=== PATIENT | female | born 1960 | race Caucasian/White ===

== ENCOUNTER → 2016-07-05 | Outpatient (CLI) | payer OTHER ==
[~2016-07-05] VITALS: Ht 167.6 cm; Wt 81.6 kg
[~2016-07-05] MED LIST: ALLEGRA ALLERG180 MG PO; ALLEGRA-D 24 H1 EACH PO; CALCIUM500 MG PO; COLACE100 MG PO; DIOVAN160 MG PO; EQ SINUS CONGE1 EAC1 PO; GLUCOTEN CAPLE1 EACH PO; GUIATUSSIN DAC473 ML PO; HAIR SKIN NAILS PO; HYDROCHLOROTHIA25 M1; IRON325 PO; LIDODERM 5%1 PATC1 TRANSDERM; LIPITOR10 MG PO; LORTAB 10 MG-3473 ML PO; LOVAZA1000 MG PO; MIRALAX17 GM PO; MOBIC7.5 MG PO; MUCINEX TA600 MG/TA2 PO; NORCO 5-325 TA1 EACH PO; PROZAC20 M1 PO; UNICOMPLEX M TA1 TA1 PO; VENTOLIN HFA 1818 GM INH; VITAMIN B12-FO1 EAC1 PO; VOLTAREN 50MG T50 MG PO; ZANTAC 150MG T150 MG PO; ZOFRAN ODT4 MG PO
--- NOTE | ~2016-07-05 | HPC ---
[facility] [place] [address] PAIN MANAGEMENT CONSULTATION Name: BEVERLY MCLAIN [facility] #: [facility] [id number] Admission: 07/05/16 Attend Phys: Gage Douglas DO Discharge: Date of : 58 Report #: [id number] THIS REPORT FOR: //name// CC: Jessica Douglas DO HISTORY OF PRESENT ILLNESS: The patient is a 55-year-old female, somewhat self-referred to the pain clinic for assistance with management of ongoing back pain. She had back surgery in 1990 for low back and right leg pain. Had an L5-S1 fusion with overall improvement of function, but she has had back pain for 26 year since. Pain is primarily low back, top of the buttock. It is exacerbated with standing or walking. She has had multiple injections over time. She did present to the pain clinic with medical records from multiple physicians. She saw orthopedic surgeon, Dr. Pal Treviño in October of 2015. Diagnosis was left hip pain with left lower extremity radiculopathy, anterior labral tear, and gluteus medius partial thickness tear. He did an injection with only modest efficacy. He then referred her for consideration for epidural injections. She was seen at the pain clinic in [facility] by Dr. J Luis Chavira. His notes refer to a fall in March of 2015, which further exacerbated back pain. It appears he did a number of caudal epidural injections under fluoroscopy. These afforded, per the patient, good yet transient improvement of pain. It appears her last steroid injection was in January of last year. She does reference having had multiple other procedures at other pain clinics over the many years. Unfortunately, the only records she provided were for the past 6 months. Currently, she notes she has continuous, steady, constant, aching, stabbing pain, rates it anywhere from 7-9 on a 0-10 visual analog scale. She states heat, rest, pillows and/or "narcotics" make her pain better. She denies any myelopathic symptoms. No specific loss of proprioception or saddle anesthesia and/or bowel or bladder continence changes. She does have subjective axial back pain and subjective feeling of weakness in the legs. REVIEW OF SYSTEMS: Complete review of systems was attached to the chart, was gone over with the patient. She is , seen in the company of her , who is supportive. She does not drink alcohol to excess. States she does not use tobacco products. History of dyslipidemia for which she takes Lipitor, chronic anxiety and depression for which she takes Prozac, asthma for which she uses a Ventolin metered dose inhaler. Diovan for hypertension. She apparently gets some pain medication from Dr. Rodrigo Pinedo, hydrocodone elixir, Lidoderm patches, and meloxicam 7.5 mg one tablet daily. PAST SURGICAL HISTORY: Includes the aforementioned lumbar fusion in 1990. [address] [address] PAIN MANAGEMENT CONSULTATION Name: BEVERLY MCLAIN Room #: REG JOSELINE Coulter#: [id number] Admission: 07/05/16 Attend Phys: Gage Douglas DO Discharge: Date of : 58 Report #: [id number] gastric sleeve in 2013 for obesity, she weighed 265 pounds at that time. She has lost about 85 pounds. Had a right knee arthroscopy in 2007, hernia repair in 2015, and ENT surgery around the year 1999. The patient states she had to quit working in August due to back pain. She is not on worker compensation or disability, nor she involved in any litigation regarding her current pain. Pain impact score is rated quite high, scoring 60/70 possible points. PHYSICAL EXAMINATION: Reveals a 5 feet 6 inches, 180-pound female, BMI is 29.1 kilograms per meter squared. Blood pressure is 134/70, pulse is 58, respirations are 16. NEUROLOGIC: Cranial nerves 2-12 are grossly intact. HEENT: Pupils are equal, round, and reactive to light and accommodation. Extraocular muscles are intact. NECK: Thyroid is unremarkable. HEART: Regular and rhythmical with a grade 1/6 systolic ejection murmur. LUNGS: Clear to auscultation. EXTREMITIES: Upper extremity strength shows a little bit of weakness in the left side with abduction, perhaps about 3/5, all other muscle groups in the upper extremities 4/5. Rises from the chair using armrests, has a mildly antalgic yet tandem gait. Subjectively unable to walk on her toes and heels, though lower extremity strength is 4/5 to objective testing to dorsiflexion, plantar flexion, lower extremity extension, flexion, and hip flexion. She does have "give away" to resistance: when asked to contract specific muscles for resistance testing, I felt an initial strong contraction followed by what felt like intermittent effort with patient somewhat fuad the target muscle and then relaxing. This "intermitent" effort somewhat belies the strength she exhibits with gait strength. Straight leg raise is nominally positive on the right. Patellar and Achilles reflexes are preserved 2/4. Tender over the SI joints. Positive Grace test bilaterally. Inspection of the back reveals diffuse tenderness in the midline from about T5 down. She has significant pain behaviors recoiling from light touch palpation in the midline, though I can detect no specific muscle spasm or trigger points. DIAGNOSTIC STUDIES: Includes MRI of the lumbar spine from 09/18/2015 noting prior L5-S1 diskectomy, partial fusion, some minor bulging with no major disk herniation or central stenosis is noted. There are no annular tears noted. There is more advanced facet degenerative changes at the L4-L5 level. This is likely the source of mechanical back pain per the radiologist. This does correlate with her physical findings as well. ASSESSMENT: 1. Status post lumbar decompressive laminectomy and fusion at L5-S1 2. Lumbar spondylosis at L4-L5, component of sacroiliac joint dysfunction. 3. The patient exhibits hyperpathia and allodynia in her mid back with pain appearing out of proportion to input. This may be compatible with Myofasial Pain syndrome. [facility] [address] [place] [address] PAIN MANAGEMENT CONSULTATION Name: BEVERLY MCLAIN Noreen Room #: REG [facility].#: [id number] Admission: 07/05/16 Attend Phys: Gage Douglas DO Discharge: Date of : 58 Report #: [id number] RECOMMENDATIONS: 1. May benefit from addition of a dual action serotonin reuptake and norepinephrine reuptake imaging agent. She is on Prozac at 10 mg b.i.d., may consider dropping this to once a day and starting Cymbalta. I would start with 30 mg for 1 month, and if doing well, consider going to 60 mg and discontinuing Prozac altogether. I will defer, however, to her treating physician, Dr. Jessica Pinedo. 2. I talked with the patient today about interventional options. I would recommend moving forward with SI joint injections under fluoroscopy initially. If this affords only incremental relief, consider L4-L5 facet joint injections if low back pain remains problematic. (with her fusion at L5/S1 she is at risk for increased movement at the joints both above and below; L4/5 and SI). 3. Physical therapy, home stretches, and core strengthening have been trialed for 8 weeks, recommend continuing these efforts. 4. The patient is on a nonsteroidal anti-inflammatory medication (Meloxicam) Recommend continuing this agent. 5. I will seek authorization for SI joint injections at next visit. Thank you for allowing me to participate in this patient's care. <ELECTRONICALLY SIGNED> By: Gage Douglas DO 07/08/16 0850 1155 21 aGge Douglas DO /nt
[2016-07-05 09:33] VITALS: BP 134/70
== END ==
LOC: PAIN 07:22
DX: M47.816 Spondylosis without myelopathy or radiculopathy, lumbar region (principal); G89.4 Chronic pain syndrome; E66.9 Obesity, unspecified; F41.9 Anxiety disorder, unspecified

== ENCOUNTER → 2016-07-08 | Outpatient (CLI) | payer OTHER ==
[~2016-07-08] VITALS: Ht 167.6 cm; Wt 84.8 kg
--- NOTE | ~2016-07-08 | HPC ---
[facility] [place] [address] PAIN MANAGEMENT CONSULTATION Name: BEVERLY REYES Noreen Room #: REG JOSELINE Coulter#: [id number] Admission: 07/08/16 Attend Phys: Gage Douglas DO Discharge: Date of : 58 Report #: [id number] THIS REPORT FOR: //name// CC: Jessica Douglas This patient is a 55-year-old female seen in consultation on 07/05/2016. She is status post decompressive laminectomy and fusion of L5/S1; she presented with bilateral SI joint dysfunction, and a component of bilateral lumbar spondylosis (L4/5) . The patient is being appropriately managed by Dr. Rodrigo Pinedo. She has been taking hydrocodone elixir 7.5-15 mL q.i.d. (corresponding to 5-10 mg hydrocodone), and meloxicam 15mg daily. The patient states she has been unable to take the somewhat large hydrocodone/acetamenophen tablets due to bariatric surgery. She presents to pain clinic today for prior authorized SI joint injections under fluoroscopy. She tells me today that she "shook her hydrocodone, and the cap was loosened, and she spilled it". While this sounds a little bit disingenuous, I will give the patient the benefit of the doubt, and I will write for a short prescription for hydrocodone-acetaminophen elixir 10/300 per 15 mL, Dispense 240 mL. Directions 7.5-15 mL q. 4-6 hours as needed for pain. I told the patient, I would send this information to Dr. Rodrigo Pinedo, I am not taking overriding for her chronic opiates, simply providing "gap" prescription. ASSESSMENT: 1. S/P L5/S1 fusion 2. Axial back pain requiring complex medication managmemnt 3. Lumbar sponodylosis (L4/5) 4. Lumbo-sacral spondylosis, SI joint mediated pain PROCEDURE: Bilateral SI joint injection under fluoroscopy. DESCRIPTION OF PROCEDURE: After written and informed consent was obtained including risk of infection, nerve trauma, increased pain and weakness, the patient wishes to proceed. The patient was taken to the fluoroscopy suite, placed in the prone position. The sacroiliac joint was visualized using the C-arm, turned in an oblique fashion to align the joint. The skin overlying the area was cleansed with ChloraPrep. Skin wheal with Xylocaine was raised. A 22 gauge spinal needle was inserted into the inferior aspect of the joint. A low volume extension tubing was then attached to the needle after the stylet was removed. Negative aspiration was accomplished. A 1 mL of Omnipaque was injected which showed spread within the SI joint. 40 mg triamcinolone plus 2 mL of 0.5% preservative-free bupivacaine was injected into the joint. Needle was [address] [address] PAIN MANAGEMENT CONSULTATION Name: RAYNEBEVERLY L Room #: REG JOSELINE Coulter#: [id number] Admission: 07/08/16 Attend Phys: Gage Douglas DO Discharge: Date of : 58 Report #: [id number]. Attention was then turned to the contralateral joint which was treated in an identical fashion. After both needles were removed the prep was washed off. Two Band-Aids were applied over the puncture sites. The patient was allowed to ambulate to the recovery room, monitored for an appropriate period of time, discharged in good and stable condition. Flouroscopy time was under 15 seconds. Will seek authorization for Lumbar facet joint injections, bilateral @ L4/5 to address the superior aspect Ms. Reyes's axial low back pain. By: 0924 1032 Gage Douglas DO /nt
[2016-07-08 09:05] VITALS: BP 144/84
== END ==
LOC: PAIN 06:53
DX: M53.3 Sacrococcygeal disorders, not elsewhere classified (principal); M47.26 Other spondylosis with radiculopathy, lumbar region; M96.1 Postlaminectomy syndrome, not elsewhere classified; I10 Essential (primary) hypertension; F32.9 Major depressive disorder, single episode, unspecified

== ENCOUNTER → 2016-08-05 | Outpatient (CLI) | payer OTHER ==
[~2016-08-05] VITALS: Ht 167.6 cm; Wt 83.5 kg
--- NOTE | ~2016-08-05 | HPC ---
[facility] [place] [address] PAIN MANAGEMENT CONSULTATION Name: RAYNEBEVERLY L Room #: REG JOSELINE Coulter#: [id number] Admission: 08/05/16 Attend Phys: Gage Douglas DO Discharge: Date of : 58 Report #: [id number] THIS REPORT FOR: //name// CC: Jessica Douglas HISTORY OF PRESENT ILLNESS: The patient is a pleasant 55-year-old female, prior seen in the pain clinic on 07/08/2016, diagnosed with axial back pain, lumbar spondylosis, lumbosacral spondylosis, SI-mediated pain status post L5-S1 fusion. The patient returns to pain clinic today, we had proceeded with an SI joint injection at last visit with nominal improvement of symptoms. Pain is actually little bit higher. PHYSICAL EXAMINATION: Does show tenderness over the L4 and L3 facet joints. Pain is exacerbated with standing and rotating. ASSESSMENT: 1. Symptomatic lumbosacral spondylosis, lumbar spondylosis. 2. Sacroiliac joint dysfunction, status post decompressive laminectomy and fusion. RECOMMENDATION: We will proceed with bilateral L3-L4 and L4-L5 facet joint injections under fluoroscopy today. Follow up in 3-4 weeks for reevaluation. PROCEDURE: Bilateral L3-L4 and L4-L5 facet joint injections under fluoroscopy. INDICATION: Symptomatic lumbosacral spondylosis. PROCEDURE: After written informed consent was obtained, the patient was taken to the fluoroscopy suite and placed in prone position. After sterile prep and drape, skin wheal was raised. A 25-gauge stylet needles were placed to contact the inferior aspect of the left L4-L5 and left L3-L4 facet joints. AP and lateral projections showed good needle placement. Negative aspiration was accomplished. 20 mg triamcinolone plus 1 mL of 0.5% preservative-free bupivacaine was injected at each site. [place] were removed and C-arm was turned obliquely to the right and the procedure was repeated on this side. After all four needles were removed, the area was cleansed, Band-Aids applied. The patient was allowed to ambulate to recovery room, monitored for an appropriate period of time, discharged in good and stable condition. Follow up in 3 weeks for reevaluation. Fluoroscopy time was under 20 seconds. By: 1211 [id number] Gage Douglas DO /nt
[2016-08-05 09:59] VITALS: BP 119/68
== END | disposition home or self-care (01) ==
LOC: PAIN 06:08
DX: M47.817 Spondylosis without myelopathy or radiculopathy, lumbosacral region (principal); M53.3 Sacrococcygeal disorders, not elsewhere classified; M47.816 Spondylosis without myelopathy or radiculopathy, lumbar region; Z98.890 Other specified postprocedural states

== ENCOUNTER → 2016-11-28 | Outpatient (CLI) | payer OTHER ==
[~2016-11-28] VITALS: Ht 167.6 cm; Wt 87.6 kg
[~2016-11-28] MED LIST changes: +HYDROCODONE-ACE15 ML PO
--- NOTE | ~2016-11-28 | HPC ---
[facility] [place] [address] PAIN MANAGEMENT CONSULTATION Name: LORI MCLAINARASH Sorto Room #: REG [facility] [id number] Admission: 11/28/16 Attend Phys: Gage Douglas DO Discharge: Date of : 58 Report #: [id number] THIS REPORT FOR: //name// CC: Jessica Douglas DATE OF SERVICE: 11/28/2016 DATE OF SERVICE: 11/28/2016 HISTORY OF PRESENT ILLNESS: The patient is a 56-year-old female, prior seen in the pain clinic 08/05/2016. The patient was given bilateral L3-L4 and L4-L5 facet joint injections under fluoroscopy with excellent improvement of symptoms. She returns to pain clinic today noting that the aforementioned injection in August afforded 60% relief for 2 months. She was able to do activities with less pain, notes pain has gradually begun to recur without any antecedent trauma and overuse. Pain is in the beltline to buttock, right leg does have some paresthesia and weakness. She has trouble going up and down stairs, has to lead with her left leg. Rates her pain at 8 on VAS notes there is numbing, stabbing sensation, pain exacerbated with walking and bending. PHYSICAL EXAMINATION: Shows a 56-year-old female, BMI and B/P are on the EMR , pulse 60, respirations 16. Rises from chair using armrest, modestly antalgic gait. Tender over the L3-L4 area. Positive straight leg raise on the right, pain, significant exacerbated with side bending and rotation. ASSESSMENT: 1. Symptomatic sacroiliac joint dysfunction by clinical exam and history. 2. Symptomatic lumbosacral spondylosis by clinical exam and history. 3. The patient with prior L5-S1 fusion, axial back pain and a component of right lumbar radicular pain. RECOMMENDATIONS: 1. Bilateral L3-L4 and L4-L5 facet joint injection under fluoroscopy. 2. Follow up in 3 weeks for reevaluation. Consideration for EMG right lower extremity versus epidural injection if indicated for clinical radicular symptoms. We did review MRI from 09/18/2015, which notes prior L5-S1 diskectomy and fusion, more advanced facet changes at L4-L5. PROCEDURE: Bilateral L3-L4 and L4-L5 facet joint injection under fluoroscopy. FLUOROSCOPY TIME: Under 20 seconds. PROCEDURE NOTE: After written informed consent was obtained, [place] [address] PAIN MANAGEMENT CONSULTATION Name: BEVERLY MCLAIN Room #: REG JOSELINE Coulter#: [id number] Admission: 11/28/16 Attend Phys: Gage Douglas DO Discharge: Date of : 58 Report #: [id number] taken to the fluoroscopy suite and placed in prone position. After sterile prep and drape, skin wheal was raised. A 22-gauge stylet needle was placed to contact the inferior aspect of the left L3-L4 and left L4-L5 facet joint. AP and lateral projections showed good needle placement. A 20 mg triamcinolone plus 1 mL of 0.5% preservative-free bupivacaine was injected into each joint. Cranks removed. C-arm was turned obliquely the right. Procedure was repeated this side. After all four needles removed. The area was cleansed, Band-Aids applied. The patient was allowed to ambulate to recovery room, monitored for an appropriate period of time, discharged in good and stable condition, noting dramatic improvement of baseline pain. Subjective pain score had been 8/10 on admission, was 2/10 on discharge. Follow up in 2-3 weeks for reevaluation. Thank you for allowing me to participate in this patient's care. <ELECTRONICALLY SIGNED> By: Gage Douglas DO 12/02/16 0840 1549 1502 Gage Douglas DO /nt
[2016-11-28 09:19] VITALS: BP 121/58
== END ==
LOC: PAIN 08-26 08:36
DX: M54.5 Low back pain (principal); M47.897 Other spondylosis, lumbosacral region; M53.3 Sacrococcygeal disorders, not elsewhere classified; I10 Essential (primary) hypertension; F32.9 Major depressive disorder, single episode, unspecified; Z88.1 Allergy status to other antibiotic agents; Z88.8 Allergy status to other drugs, medicaments and biological substances; Z79.891 Long term (current) use of opiate analgesic

== ENCOUNTER → 2016-12-26 | Outpatient (CLI) | payer OTHER ==
[~2016-12-26] VITALS: Ht 167.6 cm; Wt 86.5 kg
--- NOTE | ~2016-12-26 | HPC ---
[facility] [place] [address] PAIN MANAGEMENT CONSULTATION Name: RAYNELORIBEVERLY L Room #: REG [facility] Yfn#: [id number] Admission: 12/26/16 Attend Phys: Gage Douglas DO Discharge: Date of : 58 Report #: [id number] THIS REPORT FOR: //name// CC: Jessica Douglas DATE OF SERVICE: 12/26/2016 The patient is a 56-year-old female being treated for lumbosacral spondylosis, lumbar spondylosis, SI joint dysfunction, status post lumbar decompressive laminectomy. Last visit, we had proceeded with L3-L4 and L4-L5 bilateral facet joint injections. The patient noted she had about 50% relief of low back pain which is ongoing, able to do more activity with less pain. She did get diagnostic studies including MRI of the lumbar spine 09/18/2015, which were reviewed today. Again, previous L5-S1 diskectomy with lumbar facet degenerative changes throughout the lumbar spine. PHYSICAL EXAMINATION: Shows tenderness in the low back, exacerbated with side bending and rotation. The patient is having some ongoing right radicular pain and neuropathy. Paresthesia. Dr. Wallace had written for EMG, which is yet to be accomplished. Our nurses did contact Dr. Downey's office and have encouraged an appointment 01/02/2017 at 1345 hours. ASSESSMENT: Symptomatic lumbar spondylosis, lumbosacral spondylosis, sacroiliac joint dysfunction, status post lumbar decompressive laminectomy at L5-S1 with ongoing axial back pain. RECOMMENDATIONS: I had a long discussion with the patient today about therapeutic options. She has had good relief with facet joint injections last 2 visits. Today, we talked about moving forward with medial branch dorsal rami diagnostic block. We will move forward with radiofrequency neurolysis at next visit given good subjective relief that the patient had following the procedure. The patient notes pain was a 5-6 on VAS today, was 2 on VAS on discharge. ASSESSMENT: Symptomatic lumbosacral spondylosis, lumbar spondylosis. PROCEDURE: Medial branch dorsal rami diagnostic blocks in lumbar spine x 6 (L2, L3 and L4 bilateral). PROCEDURE NOTE: After written informed consent was obtained, the patient was [address] [address] PAIN MANAGEMENT CONSULTATION Name: RAYNEBEVERLY L Room #: [facility]#: [id number] Admission: 12/26/16 Attend Phys: Gage Douglas DO Discharge: Date of : 58 Report #: [id number] taken to fluoroscopy suite, placed in prone position. After sterile prep and drape, skin wheal was raised. A 22-gauge stylet needle was placed to contact superior articular process of L5, L4 and L3. AP and lateral projection showed good needle placement adjacent to the L2, L3 and L4 medial branch dorsal rami nerves. 1 mL of 50:50 mix of 0.5% preservative-free bupivacaine plus 1.5% preservative-free Xylocaine with 1:200,000 epinephrine was injected. All three needles removed. C-arm was turned obliquely to the right and procedure was repeated. Flouroscopy time was under 20 seconds. After all 6 needles removed, the patient was allowed to ambulate to the recovery room, monitored for an appropriate period of time, noting a good 60+ percent relief following the initial diagnostic block. She was told to monitor the hourly pain scores for the next 5 hours. We will plan on moving forward with medial branch dorsal rami diagnostic blocks at next visit. <ELECTRONICALLY SIGNED> By: Gage Douglas DO 12/27/16 0654 1225 [id number] Gage Douglas DO /nt
[2016-12-26 10:02] VITALS: BP 102/61
== END | disposition home or self-care (01) ==
LOC: RAD 08:19 → PAIN 08:19
DX: M47.816 Spondylosis without myelopathy or radiculopathy, lumbar region (principal); M47.817 Spondylosis without myelopathy or radiculopathy, lumbosacral region; M53.3 Sacrococcygeal disorders, not elsewhere classified; Z98.890 Other specified postprocedural states

== ENCOUNTER → 2017-02-13 | Outpatient (CLI) | payer OTHER ==
[~2017-02-13] VITALS: Ht 167.6 cm; Wt 89.4 kg
[~2017-02-13] MED LIST changes: +ASPIR 8181 MG PO; +FLONASE 0.05%50 MCG NASAL
--- NOTE | ~2017-02-13 | HPC ---
[address] [address] PAIN MANAGEMENT CONSULTATION Name: RAYNEBEVERLYARASH GUARDADO Room #: REG [facility] Yfn#: [id number] Admission: 02/13/17 Attend Phys: Gage Douglas DO Discharge: Date of : 58 Report #: [id number] THIS REPORT FOR: //name// CC: Jessica Douglas PROCEDURE: Radiofrequency neurolysis x 3, right side, L2, L3 and L4. INDICATIONS: Symptomatic lumbar spondylosis in a patient status post lumbar decompressive laminectomy with no myelopathic or radicular symptoms. The patient has had greater than 50% relief following 2 diagnostic blocks on 11/28/2016 and 12/26/2016, (diagnostic blocks for bilateral). The patient wished to proceed with right-sided radiofrequency neurolysis as this tended to be the worse. We will plan on seeing her back in 1 week to evaluate efficacy and consider left-sided neurolysis. ASSESSMENT: Symptomatic lumbar spondylosis without myelopathy or radiculopathy. PROCEDURE: Right L2, L3 and L4 medial branch dorsal rami neurolysis via RFL. DESCRIPTION OF PROCEDURE: After written informed consent was obtained, the patient was taken to the fluoroscopy suite and placed in prone position. After sterile prep and drape, skin wheal with Xylocaine was raised x 3. Three 10 mm RFK needles was placed to contact superior articular process of L5, L4 and L3 adjacent to the L2, L3 and L4 medial branch dorsal rami nerves respectively. AP and lateral projections showed good needle placement. Initial impedance, sensory and motor testing was accomplished, those numbers are on the chart. Each needle was then injected with 1 mL of 1% preservative-free Xylocaine and heated to 80 degrees centigrade for 90 seconds. A 13 mg of triamcinolone plus 1 mL of 0.5% preservative-free bupivacaine was injected through the needle, needles were removed. The area was cleansed, Band-Aids applied. The patient was allowed to ambulate to recovery room, monitored for an appropriate period of time. Fluoroscopy time was 20 seconds. <ELECTRONICALLY SIGNED> By: Gage Douglas DO 02/14/17 0943 1243 0332 Gage Douglas DO /nt
[2017-02-13 11:01] VITALS: BP 119/66
== END | disposition home or self-care (01) ==
LOC: PAIN 06:26
DX: M47.816 Spondylosis without myelopathy or radiculopathy, lumbar region (principal); Z98.890 Other specified postprocedural states; Z88.0 Allergy status to penicillin; Z88.8 Allergy status to other drugs, medicaments and biological substances; Z88.1 Allergy status to other antibiotic agents; Z79.82 Long term (current) use of aspirin; Z79.899 Other long term (current) drug therapy; Z79.891 Long term (current) use of opiate analgesic

== ENCOUNTER → 2017-03-06 | Outpatient (CLI) | payer OTHER ==
[~2017-03-06] VITALS: Ht 167.6 cm; Wt 88.6 kg
[~2017-03-06] MED LIST changes: +PROMETHAZINE/C118 ML PO
--- NOTE | ~2017-03-06 | HPC ---
[facility] [place] [address] PAIN MANAGEMENT CONSULTATION Name: RAYNEBEVERLYARASH GUARDADO Room #: [facility] Yfn#: [id number] Admission: 03/06/17 Attend Phys: Gage Douglas DO Discharge: Date of : 58 Report #: [id number] THIS REPORT FOR: //name// CC: Jessica Douglas DATE OF SERVICE: 03/06/2017 The patient is a very pleasant 56-year-old female being treated for lumbosacral spondylosis, lumbar spondylosis, status post lumbar decompressive laminectomy. She was last seen in Pain Clinic on 02/13/2017. We progressed with right-sided neurolysis via radiofrequency lesioning of L2, L3 and L4 medial branch dorsal rami. Prior diagnostic blocks 12/26/2016 and 11/28/2016 had afforded good transient relief. She presents to Pain Clinic today for contralateral i.e., left RFL of L2, L3 and L4. She notes greater than 60% improvement following the contralateral i.e., right-sided neurolysis. ASSESSMENT: Symptomatic lumbar spondylosis. The patient with ongoing left-sided low back pain. PROCEDURE: Left L2, L3 and L4 medial branch dorsal rami neurolysis with RFL. PROCEDURE NOTE: After written informed consent was obtained, the patient was taken to the fluoroscopy suite and placed in prone position. After sterile prep and drape, skin was raised. Three 10-mm RFK needles were placed to contact superior articular process of L3, L4 and L5 corresponding to L2, L3 and L4 medial branch dorsal rami nerves. After appropriate AP and lateral projections showed good needle placement and initial impedance, motor and sensory testing was confirmed, each needle was injected with 1 mL of 1% preservative-free Xylocaine, heated to 80 degrees centigrade for 90 seconds and injected with 13 mg of triamcinolone plus 1 mL of 0.5% preservative-free bupivacaine. All 3 needles were removed. The area was cleansed and Band-Aids applied. Fluoroscopy time was under 20 seconds. The patient monitored for an appropriate period of time, discharged in good and stable condition. <ELECTRONICALLY SIGNED> By: Gage Douglas DO 03/07/17 [id number] 10 Gage Douglas DO /nt
[2017-03-06 13:28] VITALS: BP 102/67
== END ==
LOC: PAIN 07:13
DX: M47.816 Spondylosis without myelopathy or radiculopathy, lumbar region (principal); M47.817 Spondylosis without myelopathy or radiculopathy, lumbosacral region; Z98.890 Other specified postprocedural states

== ENCOUNTER 2017-04-09 07:06 | Emergency (ER) | payer OTHER ==
[~2017-04-09] VITALS: Ht 167.6 cm; Wt 86.2 kg
[~2017-04-09 07:06] MED LIST changes: -PROMETHAZINE/C118 ML PO
[2017-04-09 08:06] LABS: CALCIUM 9.1 mg/dL (8.5-10.1); CREATININE 1.1 mg/dL (0.6-1.0); POTASSIUM 3.4 mmol/L (3.5-5.1)
[2017-04-09] MEDS ORDERED: PROMETHAZINE/C118 ML PO (08:49)
[2017-04-09 08:58] VITALS: BP 107/49
== END 2017-04-09 09:33 | disposition home or self-care (01) ==
LOC: ER 07:06
PROVIDERS: Emergency Medicine
DX: J09.X2 Influenza due to identified novel influenza A virus with other respiratory manifestations (principal); Z90.710 Acquired absence of both cervix and uterus; Z88.1 Allergy status to other antibiotic agents; Z88.8 Allergy status to other drugs, medicaments and biological substances

== ENCOUNTER → 2017-04-30 | Outpatient (CLI) | payer OTHER ==
[~2017-04-30] MED LIST changes: +PROMETHAZINE/C118 ML PO
== END ==
LOC: NUC 12:51
DX: Z78.0 Asymptomatic menopausal state (principal)